=== PATIENT | female | born 1945 | race Caucasian/White ===

== ENCOUNTER 2018-06-04 11:48 | Observation (INO) | payer OTHER, BC ==
[2018-06-04 12:25] LABS: ADD MAN DIFF? NO
[2018-06-04] MEDS: ASPIRIN 81 MG TAB PO (12:30)
[2018-06-04 12:40] LABS: WHITE BLOOD COUNT 6.8 10^3/ul (4.8-10.8)
[2018-06-04 12:40] LABS: BASOPHILS % 0.6 % (0.0-2.0); EOSINOPHILS # 0.1 10^3/ul (0.0-0.5); EOSINOPHILS % 0.7 % (0.0-7.0); HEMATOCRIT 40.5 % (37.0-47.0); HEMOGLOBIN 13.7 g/dl (12.0-16.0); LYMPHOCYTES # 3.3 10^3/ul (0.8-2.9); LYMPHOCYTES % 48.6 % (15.0-51.0); MEAN CORPUSCULAR HEMOGLOBIN 32.7 pg (29.0-33.0); MEAN CORPUSCULAR HGB CONC 33.8 g/dl (32.0-37.0); MEAN CORPUSCULAR VOLUME 96.7 fl (82.0-101.0); MONOCYTE # 0.4 10^3/ul (0.3-0.9); MONOCYTES % 6.3 % (0.0-11.0); NEUTROPHIL # 2.9 10^3/ul (1.6-7.5); NEUTROPHILS % 43.4 % (39.0-77.0); PLATELET COUNT 204 10^3/UL (140-415); RED BLOOD COUNT 4.19 10^6/ul (4.20-5.40); RED CELL DISTRIBUTION WIDTH 13.4 % (11.5-14.5)
[2018-06-04 13:41] LABS: ANION GAP 8 (5-13); BLOOD UREA NITROGEN 17 mg/dl (7-20); CALCIUM 9.1 mg/dl (8.4-10.2); CARBON DIOXIDE 26 mmol/L (21-31); CHLORIDE 107 mmol/L (97-110); CREATININE 0.64 mg/dl (0.44-1.00); GLUCOSE 124 mg/dl (70-220); SODIUM 141 mmol/L (135-144)
[2018-06-04 13:50] LABS: TROPONIN-I < 0.012 ng/ml (0.000-0.120)
[2018-06-04] MEDS ORDERED: ONDANSETRON 4 MG INJ IV ×2 (14:00→15:30)
[2018-06-04] MEDS ORDERED: ACETAMINOPHEN 325 MG TAB PO ×2 (14:00→15:30)
[2018-06-04] MEDS ORDERED: NITROGLYCERIN (SL) 0.4 MG TAB SL (15:30)
[2018-06-04] MEDS ORDERED: morphine 2 MG INJ IV (15:30)
[2018-06-04] MEDS ORDERED: NACL 0.9% 3 ML SYG IV (15:30)
[2018-06-04] MEDS: PANTOPRAZOLE (EC) 40 MG TAB PO (16:27)
[2018-06-04] MEDS: SUCRALFATE (100 MG/ML) 10ML CUP PO ×2 (16:27→20:48)
[2018-06-04 18:46] LABS: CREATINE KINASE 50 IU/L (23-200)
[2018-06-04 18:59] LABS: CK INDEX 0.4; CK-MB < 0.22 ng/ml (0.0-2.4); TROPONIN-I < 0.012 ng/ml (0.000-0.120)
[2018-06-04] MEDS: HYDROCODONE/APAP (5/325) TAB PO (20:49)
[2018-06-04] MEDS: ATORVASTATIN 80 MG TAB PO (20:49)
[2018-06-05 00:56] LABS: CREATINE KINASE 53 IU/L (23-200)
[2018-06-05 01:10] LABS: CK INDEX 0.4; CK-MB 0.23 ng/ml (0.0-2.4); TROPONIN-I < 0.012 ng/ml (0.000-0.120)
[2018-06-05] MEDS: PANTOPRAZOLE (EC) 40 MG TAB PO (06:17)
[2018-06-05 06:56] LABS: ADD MAN DIFF? NO
[2018-06-05 07:03] LABS: BASOPHILS % 0.5 % (0.0-2.0); EOSINOPHILS # 0.1 10^3/ul (0.0-0.5); EOSINOPHILS % 1.6 % (0.0-7.0); HEMATOCRIT 37.1 % (37.0-47.0); HEMOGLOBIN 12.5 g/dl (12.0-16.0); LYMPHOCYTES # 2.5 10^3/ul (0.8-2.9); LYMPHOCYTES % 43.3 % (15.0-51.0); MEAN CORPUSCULAR HEMOGLOBIN 32.6 pg (29.0-33.0); MEAN CORPUSCULAR HGB CONC 33.7 g/dl (32.0-37.0); MEAN CORPUSCULAR VOLUME 96.6 fl (82.0-101.0); MEAN PLATELET VOLUME 10.1 fl (7.4-10.4); MONOCYTE # 0.4 10^3/ul (0.3-0.9); MONOCYTES % 7.7 % (0.0-11.0); NEUTROPHIL # 2.7 10^3/ul (1.6-7.5); NEUTROPHILS % 46.5 % (39.0-77.0); PLATELET COUNT 187 10^3/UL (140-415); RED BLOOD COUNT 3.84 10^6/ul (4.20-5.40); RED CELL DISTRIBUTION WIDTH 13.3 % (11.5-14.5)
[2018-06-05 07:03] LABS: WHITE BLOOD COUNT 5.7 10^3/ul (4.8-10.8)
[2018-06-05 07:30] LABS: HEMOGLOBIN A1C 5.9 % (0-5.9)
[2018-06-05 07:53] LABS: ALANINE AMINOTRANSFERASE 15 IU/L (13-69); ALBUMIN 3.3 g/dl (3.3-4.9); ALBUMIN/GLOBULIN RATIO 1.32; ALKALINE PHOSPHATASE 79 IU/L (42-121); ANION GAP 6 (5-13); ASPARTATE AMINO TRANSFERASE 16 IU/L (15-46); BILIRUBIN,INDIRECT 0.7 mg/dl (0-1.1); BILIRUBIN,TOTAL 0.7 mg/dl (0.2-1.3); BLOOD UREA NITROGEN 13 mg/dl (7-20); CALCIUM 8.9 mg/dl (8.4-10.2); CARBON DIOXIDE 27 mmol/L (21-31); CHLORIDE 109 mmol/L (97-110); CHOL/HDL RATIO 4.5 RATIO; CHOLESTEROL 154 mg/dl (100-200); CREATININE 0.69 mg/dl (0.44-1.00); GLUCOSE 94 mg/dl (70-220); HDL CHOLESTEROL 34 mg/dl (33-92); LDL CHOLESTEROL,CALCULATED 90 mg/dl; POTASSIUM 4.1 mmol/L (3.5-5.1); SODIUM 142 mmol/L (135-144); TOTAL PROTEIN 5.8 g/dl (6.1-8.1); TRIGLYCERIDES 149 mg/dl (0-149)
[2018-06-05] MEDS: ASPIRIN 81 MG TAB PO (08:08)
[2018-06-05] MEDS: SUCRALFATE (100 MG/ML) 10ML CUP PO ×2 (08:08→13:05)
== END 2018-06-05 16:28 | disposition home or self-care (01) ==
LOC: E/R 11:48 → TEL 14:00
PROVIDERS: Internal Medicine
DX: R07.9 Chest pain, unspecified (principal); R07.89 Other chest pain; K21.9 Gastro-esophageal reflux disease without esophagitis; E78.5 Hyperlipidemia, unspecified; E78.00 Pure hypercholesterolemia, unspecified; I45.10 Unspecified right bundle-branch block
CPT/HCPCS: 36415; 71045; 80048; 80053; 80061; 82550; 82553; 83036; 83735; 84443; 84484; 85025; 93005; 93306; 99217; 99285-25